=== PATIENT | female | born 1985 | race Caucasian/White ===

== ENCOUNTER 2018-10-16 13:57 | Inpatient (IN) | payer OTHER ==
--- NOTE | 2018-10-16 14:02 | PDOC ---
Rapid Medical Evaluation Time Seen by Provider: 10/16/18 13:59 Medical Evaluation: 10/16/18 13:59 I have performed a brief in-person evaluation of this patient. The patient presents with a chief complaint of: dizzyness, vomiting, blurry vision seen in another ER 5 days ago. Sent by PCP Dr Brown Pertinent physical exam findings: NAD I have ordered the following: u preg and labs Discharge Disposition - Diagnosis Dizzy - Referrals - Patient Instructions - Post Discharge Activity
[2018-10-16 14:05] VITALS: BMI 20.9
[2018-10-16 14:29] LABS: BASO % 0.3 % (0-2.0); EOS % 0.4 % (0-4.5); HEMATOCRIT 41.3 % (32.4-45.2); HEMOGLOBIN 14.6 GM/dL (10.7-15.3); LYMPH % 18.2 % (8-40); MCH 31.4 pg (25.7-33.7); MCHC 35.4 g/dl (32.0-36.0); MEAN CELL VOLUME 88.8 fl (80-96); MEAN PLT VOLUME 8.8 fl (7.5-11.1); MONO % 5.5 % (3.8-10.2); NEUT % 75.6 % (42.8-82.8); PLATELET COUNT 295 K/MM3 (134-434); RBC 4.65 M/mm3 (3.60-5.2); RDW 13.5 % (11.6-15.6); WHITE BLOOD COUNT 11.1 K/mm3 (4.0-10.0)
[2018-10-16 14:53] LABS: ALBUMIN 4.2 g/dl (3.4-5.0); ALK PHOS 60 U/L (45-117); ANION GAP 7 MMOL/L (8-16); BILIRUBIN,TOTAL 0.5 mg/dL (0.2-1); BLOOD UREA NITROGEN 11 mg/dL (7-18); CALCIUM 9.6 mg/dL (8.5-10.1); CHLORIDE 105 mmol/L (98-107); CO2 24 mmol/L (21-32); CREATININE 0.6 mg/dL (0.55-1.3); GLUCOSE,RANDOM 120 mg/dL (74-106); POTASSIUM 3.6 mmol/L (3.5-5.1); SGOT/AST 7 U/L (15-37); SGPT/ALT 15 U/L (13-61); SODIUM 136 mmol/L (136-145)
[2018-10-16] MEDS ORDERED: PANTOPRAZOLE 40 MG TABLET (FP) PO ONE (14:57)
[2018-10-16] MEDS ORDERED: methylPREDNISolone NA SUCC 125 MG/2 ML VIAL IVPUSH ONE (14:57)
--- NOTE | 2018-10-16 14:57 | PDOC ---
History of Present Illness - General Chief Complaint: Lightheaded Stated Complaint: SENT BY PCP Time Seen by Provider: 10/16/18 13:59 History Source: Patient Past History - Past Medical History Allergies/Adverse Reactions: Allergies Allergy/AdvReac Type Severity Reaction Status Date / Time morphine Allergy Intermediate Hives Verified 10/16/18 14:02 Penicillins Allergy Intermediate Hives Verified 10/16/18 14:02 COPD: No Other medical history: MS - Suicide/Smoking/Psychosocial Hx Smoking History: Never smoked Have you smoked in the past 12 months: No Hx Alcohol Use: No Drug/Substance Use Hx: No Review of Systems - Review of Systems Constitutional: No: Chills, Fever HEENTM: Yes: Blurred Vision ABD/GI: Yes: Nausea, Vomiting Neurological: Yes: Dizziness. No: Headache, Numbness, Tingling, Weakness *Physical Exam - Vital Signs Last Vital Signs Temp Pulse Resp BP Pulse Ox 98.4 F 89 18 118/73 99 10/16/18 14:02 10/16/18 14:02 10/16/18 14:02 10/16/18 14:02 10/16/18 14:02 - Physical Exam Comments: 10/16/18 15:01 appears uncomfortable, ambulating slowly 2/2 vertigo General Appearance: Yes: Appropriately Dressed HEENT: positive: Normal Voice Neck: positive: Supple Respiratory/Chest: negative: Respiratory Distress Integumentary: positive: Dry, Warm Neurologic: positive: Fully Oriented, Alert, Normal Mood/Affect, Motor Strength 5/5 (Constance intact, no drift) Moderate Sedation - Procedure Monitoring Vital Signs: Procedure Monitoring Vital Signs Temperature 98.4 F 10/16/18 14:02 Pulse Rate 89 10/16/18 14:02 Respiratory Rate 18 10/16/18 14:02 Blood Pressure 118/73 10/16/18 14:02 O2 Sat by Pulse Oximetry (%) 99 10/16/18 14:02 ED Treatment Course - LABORATORY CBC & Chemistry Diagram: 10/16/18 14:10 10/16/18 14:10 - ADDITIONAL ORDERS Additional order review: Laboratory Results 10/16/18 14:21 Urine HCG, Qual Negative 10/16/18 14:10 RBC 4.65 MCV 88.8 MCHC 35.4 RDW 13.5 MPV 8.8 Neutrophils % 75.6 Lymphocytes % 18.2 Monocytes % 5.5 Eosinophils % 0.4 Basophils % 0.3 Medical Decision Making - Medical Decision Making 10/16/18 14:53 32 yo email with history of MS on Texidera, follows up with Dr. Brown of neuro , here w/ persistent vertigo, n/v and blurry vision. Patient states symptoms started 6 days ago and was seen in [facility] in the ER with unchanged MRI. Was sent home with meclizine and ? zofran with minimal relief. States nausea/ vomiting since resolved. Denies headache, focal weakness, uri sxs or tinnitus. Patient states symptoms similar to her MS flare and was last admitted for same in 2013. States she called Dr. Brown this a.m., who told her to come to ED for admission See exam MS flare Unchanged MRI recently at [facility] per Dr Brown -labs -admit for IV steroids per Dr foote -manage vertigo 10/16/18 15:37 Case d/w hospitalist and pt admitted *DC/Admit/Observation/Transfer Diagnosis at time of Disposition: Vertigo - Discharge Dispostion Condition at time of disposition: Fair Decision to Admit order: Yes - Referrals - Patient Instructions - Post Discharge Activity
[2018-10-16] MEDS ORDERED: diazePAM 5 MG TABLET PO ONE (15:10)
[2018-10-16] MEDS ORDERED: PANTOPRAZOLE 40 MG TABLET (FP) ONE (15:21)
[2018-10-16] MEDS ORDERED: diazePAM 5 MG TABLET ONE (15:21)
[2018-10-16] MEDS ORDERED: methylPREDNISolone NA SUCC 125 MG/2 ML VIAL ONE ×2 (15:21→15:22)
--- NOTE | 2018-10-16 17:17 | HP ---
CHIEF COMPLAINT: dizziness, blurred vision PCP: none HISTORY OF PRESENT ILLNESS: 32 y/o F with PMH MS (dx Jul 2013, follows with Dr. Brown. On Tecfidara.), who presents to the ED c/o dizziness and blurred vision over the past week. States that initially, pt was also having nausea and few episodes of NBNB emesis. Due to her dizziness, 5 days ago, she went to the [facility] ED for further evaluation. While there, she was told she had vertigo and given zofran and meclizine without full relief. States that once her sx continued for 2-3 days after her [facility] visit, she "knew that it was an MS flare." Pt discussed with Dr. Brown and was brought in for management of MS flare. During this time , without other sx. Only endorses mild intermittent weakness that has improved. Had a recent MRI at [facility] which shows no new lesions or demyelination. Denies SILVESTRE, fever, chills, SOB, chest pain or pressure, or changes in urinary or bowel function. Last flare was Jul 2013 when she was dx. At the time, she was unable to see. Her sx were improved with steroids. ER course was notable for: (1) valium 5mg x 1 (2) benadryl 50mg x 1 (3) medrol 125mg x 1 (4) protonix 40mg x 1 Recent Travel: denies PAST MEDICAL HISTORY: as above PAST SURGICAL HISTORY: tubal ligation 2014 Social History: does not work currently. used to be a home sales consultant Smokin-10 cigs/day in past for 6-7 yr duration. quit in 2013 when dx with MS Alcohol: initially, social. stopped drinking in 2013 Drugs: denies Family History: HTN: in grandma, grandpa. asthma, DM in other family members Allergies morphine Allergy (Intermediate, Verified 10/16/18 14:02) Hives, edema Penicillins Allergy (Intermediate, Verified 10/16/18 14:02) Hives, edema HOME MEDICATIONS: Home Medications Medication Instructions Recorded Dimethyl Fumarate [Tecfidera] 240 mg PO BID 10/16/18 confirmed with patient verbally REVIEW OF SYSTEMS CONSTITUTIONAL: Absent: fever, chills, diaphoresis, generalized weakness, malaise, loss of appetite, weight change HEENT: Absent: rhinorrhea, nasal congestion, throat pain, throat swelling, difficulty swallowing, mouth swelling, ear pain, eye pain, visual changes CARDIOVASCULAR: Absent: chest pain, syncope, palpitations, irregular heart rate, lightheadedness , peripheral edema RESPIRATORY: Absent: cough, shortness of breath, dyspnea with exertion, orthopnea, wheezing, stridor, hemoptysis GASTROINTESTINAL: Absent: abdominal pain, abdominal distension, nausea, vomiting, diarrhea, constipation, melena, hematochezia GENITOURINARY: Absent: dysuria, frequency, urgency, hesitancy, hematuria, flank pain, genital pain MUSCULOSKELETAL: Absent: myalgia, arthralgia, joint swelling, back pain, neck pain SKIN: Absent: rash, itching, pallor HEMATOLOGIC/IMMUNOLOGIC: Absent: easy bleeding, easy bruising, lymphadenopathy, frequent infections ENDOCRINE: Absent: unexplained weight gain, unexplained weight loss, heat intolerance, cold intolerance NEUROLOGIC: +neuro, weakness, dizziness Absent: headache, unsteady gait, seizure, mental status changes, bladder or bowel incontinence PSYCHIATRIC: Absent: anxiety, depression, suicidal or homicidal ideation, hallucinations. PHYSICAL EXAMINATION Vital Signs - 24 hr 10/16/18 14:02 Temperature 98.4 F Pulse Rate 89 Respiratory 18 Rate Blood Pressure 118/73 O2 Sat by Pulse 99 Oximetry (%) GENERAL: Pleasant. Awake, alert, and fully oriented, in no acute distress. HEAD: Normal with no signs of trauma. EYES: Pupils equal, round and reactive to light, extraocular movements intact, sclera anicteric, conjunctiva clear. EARS, NOSE, THROAT: Ears normal, nares patent, oropharynx clear without exudates. Moist mucous membranes. NECK: Normal range of motion, supple LUNGS: Breath sounds equal, clear to auscultation bilaterally. No wheezes, and no crackles. No accessory muscle use. HEART: Regular rate and rhythm, normal S1 and S2 without murmur, rub or gallop. ABDOMEN: Soft, nontender, not distended, normoactive bowel sounds, no guarding, no rebound LOWER EXTREMITIES: 2+ pt pulses, warm, well-perfused. No calf tenderness. No peripheral edema. NEUROLOGICAL: Cranial nerves II-XII intact. +horizontal nystagmus on testing. 4 /5 motor strength RLE. PSYCHIATRIC: Cooperative. SKIN: Warm, dry, normal turgor Laboratory Results - last 24 hr 10/16/18 10/16/18 10/16/18 14:10 14:10 14:21 WBC 11.1 H RBC 4.65 Hgb 14.6 Hct 41.3 MCV 88.8 MCH 31.4 MCHC 35.4 RDW 13.5 Plt Count 295 MPV 8.8 Absolute Neuts (auto) 8.4 H Neutrophils % 75.6 Lymphocytes % 18.2 Monocytes % 5.5 Eosinophils % 0.4 Basophils % 0.3 Nucleated RBC % 0 Sodium 136 Potassium 3.6 Chloride 105 Carbon Dioxide 24 Anion Gap 7 L BUN 11 Creatinine 0.6 Creat Clearance w eGFR 116.60 Random Glucose 120 H Calcium 9.6 Total Bilirubin 0.5 AST 7 L ALT 15 Alkaline Phosphatase 60 Total Protein 8.0 Albumin 4.2 Urine HCG, Qual Negative ASSESSMENT/PLAN: 32 y/o F with PMH MS (dx Jul 2013, follows with Dr. Brown. On Tecfidara.), who presents to the ED c/o dizziness and blurred vision over the past week. #MS exacerbation -currently with white count, need to r/o infection. will continue to trend -without new recent demyelinating lesions -Neuro consult: Dr. Brown -c/w solumedrol 250mg IVPB q6h. will need for 3 days as per neuro -c/w protonix 40mg PO qd, as on steroids -c/w tecfidara home med #F/E/N no need for IVF at this time continue to follow lytes regular diet #PPX DVT: hep 5k TID #Dispo admit to med-surg as per neuro, will need 3 days tx then likely d/c after Visit type - Emergency Visit Emergency Visit: Yes ED Registration Date: 10/16/18 Care time: The patient presented to the Emergency Department on the above date and was hospitalized for further evaluation of their emergent condition. - New Patient This patient is new to me today: Yes Date on this admission: 10/16/18 - Critical Care Critical Care patient: No
--- NOTE | 2018-10-16 17:20 | PN ---
Teaching Attending Note Name of Resident: Pallavi Martins ATTENDING PHYSICIAN STATEMENT I saw and evaluated the patient. I reviewed the resident's note and discussed the case with the resident. I agree with the resident's findings and plan as documented. SUBJECTIVE:32yo F with PMH MS initially diagnosed in 2013 after developing blurred vision, has been controlled and has not had any flares since then. reports to the ER with blurred vision and dizzyness for 5 days. some assoc nausea. denies CP, SOB, fever, chills, cough, dysuria, V/C/D. no recent abx use , no sick contacts or recent travel OBJECTIVE: Last Vital Signs Temp Pulse Resp BP Pulse Ox 98.4 F 89 18 118/73 99 10/16/18 14:02 10/16/18 14:02 10/16/18 14:02 10/16/18 14:02 10/16/18 14:05 General NAD HEENT lateral nystagmus CV S1 S2 RRR no murmur/rub/gallop Lungs CTA B/L no wheezing/rales/rhonchi Abdomen soft NT/ND Neuro sensation grossly intact. decrease strength RUE/RLE ASSESSMENT AND PLAN: 32yo F with PMH MS presented with blurred vision and dizzyness consistent with MS flare 1. Acute MS flare- will admit to medicine. no signs of infection. will start solumedrol 250mg Q6H for 3 days. give PPI prophylaxis. had recent MRI not showing any new plaques at [place]. neuro consulted. cont tecfidera 2. Mild leukocytosis- more suggestive of stress induced. does not have any symptoms suggestive of infection and afebrile. will hold abx at this time. will do septic workup if spikes fever. 3. DVT ppx- hep sq
--- NOTE | 2018-10-16 17:39 | CON.NEURO ---
Consult - History of Present Illness History of Present Illness: 32 y/o F with PMH MS (dx Jul 2013, follows with myself On Tecfidara.), who presents to the ED c/o dizziness and blurred vision over the past week. States that initially, pt was also having nausea and few episodes of NBNB emesis. Due to her dizziness, 5 days ago, she went to the [facility] ED for further evaluation. While there, she was told she had vertigo and given zofran and meclizine without full relief. States that once her sx continued for 2-[address] [facility] visit, she "knew that it was an MS flare." MRI done there did not show any new plaques - neuro team had plan to admit her kimberly[pircally for MS flare though she did not want to stay-- residual L PAOLO During this time, without other sx. Only endorses mild intermittent weakness that has improved. recent MRI at [facility] which shows no new lesions or demyelination. Denies SILVESTRE, fever, chills, SOB, chest pain or pressure, or changes in urinary or bowel function. Last flare was Jul 2013 when she was dx. At the time, she was unable to see. Her sx were improved with steroids. - Alcohol/Substance Use Hx Alcohol Use: No - Smoking History Smoking history: Never smoked Have you smoked in the past 12 months: No Home Medications - Allergies Allergies/Adverse Reactions: Allergies Allergy/AdvReac Type Severity Reaction Status Date / Time morphine Allergy Intermediate Hives Verified 10/16/18 14:02 Penicillins Allergy Intermediate Hives Verified 10/16/18 14:02 - Home Medications Home Medications: Ambulatory Orders Dimethyl Fumarate [Tecfidera] 240 mg PO BID 10/16/18 Physical Exam-Neuro Vital Signs: Vital Signs Temperature 98.4 F 10/16/18 14:02 Pulse Rate 89 10/16/18 14:02 Respiratory Rate 18 10/16/18 14:02 Blood Pressure 118/73 10/16/18 14:02 O2 Sat by Pulse Oximetry (%) 99 10/16/18 14:05 Labs: CBC, BMP 10/16/18 14:10 10/16/18 14:10 - Neuro Exam Level Of Consciousness: Yes: Alert (L PAOLO , no facial, motor 5/5, no drift, inc tone in LE , brisk reflexes ) Problem List - Problems (1) Multiple sclerosis Code(s): G35 - MULTIPLE SCLEROSIS (2) Vertigo Code(s): R42 - DIZZINESS AND GIDDINESS Assessment/Plan 32 y/o F with PMH MS (dx Jul 2013, follows with myself On Tecfidara.), who presents to the ED c/o dizziness and blurred vision over the past week. States that initially, pt was also having nausea and few episodes of NBNB emesis. Due to her dizziness, 5 days ago, she went to the [facility] ED for further evaluation. While there, she was told she had vertigo and given zofran and meclizine without full relief. States that once her sx continued for 2-[address] [facility] visit, she "knew that it was an MS flare." MRI done there did not show any new plaques - neuro team had plan to admit her kimberly[pircally for MS flare though she did not want to stay-- residual L PAOLO During this time, without other sx. Only endorses mild intermittent weakness that has improved. recent MRI at [facility] which shows no new lesions or demyelination. Denies SILVESTRE, fever, chills, SOB, chest pain or pressure, or changes in urinary or bowel function. Last flare was Jul 2013 when she was dx. At the time, she was unable to see. Her sx were improved with steroids. AP : HX of MS , with presumptive relapse vs vestibular neuronitis start SOLUMEDROL 250IV q6 x 3 days can add VALIUM 5 PRN do not need to repeat scans vestibular rehab if needed DR ROA
[2018-10-16] MEDS ORDERED: PATIENT'S OWN MEDICATION (NON-FORMULARY) (Dimethyl Fumarate [Tecfidera] 240 MG) PO SCH (22:00)
[2018-10-16] MEDS: methylPREDNISolone NA SUCC 125 MG/2 ML VIAL IVPB SCH (22:32)
[2018-10-16] MEDS: HEPARIN NA (PORCINE) 5,000 UNITS/ML 1ML VIAL SQ SCH (22:32)
[2018-10-17] MEDS: methylPREDNISolone NA SUCC 125 MG/2 ML VIAL IVPB SCH ×4 (04:30→21:17)
[2018-10-17] MEDS: HEPARIN NA (PORCINE) 5,000 UNITS/ML 1ML VIAL SQ SCH ×3 (06:48→21:16)
[2018-10-17 07:26] LABS: WHITE BLOOD COUNT 7.7 K/mm3 (4.0-10.0)
[2018-10-17 07:27] LABS: HEMATOCRIT 39.7 % (32.4-45.2); HEMOGLOBIN 13.7 GM/dL (10.7-15.3); LYMPH % 7.8 % (8-40); MCH 30.6 pg (25.7-33.7); MCHC 34.7 g/dl (32.0-36.0); MEAN CELL VOLUME 88.4 fl (80-96); MEAN PLT VOLUME 9.3 fl (7.5-11.1); MONO % 0.6 % (3.8-10.2); NEUT % 91.6 % (42.8-82.8); PLATELET COUNT 285 K/MM3 (134-434); RBC 4.49 M/mm3 (3.60-5.2); RDW 13.1 % (11.6-15.6)
[2018-10-17 07:38] LABS: PHOSPHOROUS 3.9 mg/dL (2.5-4.9)
--- NOTE | 2018-10-17 09:30 | PN ---
Progress Note (short form) - Note Progress Note: c/o dizzyness that started this morning. improved yesterday after valium and then re-started this mrsven. denies Cp, SOB, fever, chills, N/V/C/D. tolerating diet Current Medications Generic Name Dose Route Start Last Admin Trade Name Freq PRN Reason Stop Dose Admin Acetaminophen 650 mg 10/17/18 00:20 Tylenol - PO Q4H PRN HEADACHE Heparin Sodium (Porcine) 5,000 unit 10/16/18 22:00 10/17/18 06:48 Heparin - SQ 5,000 unit TID DARIEN Administration Methylprednisolone Sodium Succinate 250 mg 10/16/18 21:00 10/17/18 04:30 Solu-Medrol - IVPB 250 mg Q6H-IV DARIEN Administration Non-Formulary Medication 240 mg 10/16/18 22:00 Dimethyl Fumarate [Tecfidera] PO BID DARIEN Pantoprazole Sodium 40 mg 10/17/18 10:00 Protonix - PO DAILY DARIEN Last Vital Signs Temp Pulse Resp BP Pulse Ox 98.2 F 83 18 116/66 99 10/17/18 08:48 10/17/18 08:48 10/17/18 08:48 10/17/18 08:48 10/16/18 21:00 General NAD HEENT lateral nystagmus CV S1 S2 RRR no murmur/rub/gallop Lungs CTA B/L no wheezing/rales/rhonchi Abdomen soft NT/ND CBCD WBC 7.7 K/mm3 (4.0-10.0) 10/17/18 06:00 RBC 4.49 M/mm3 (3.60-5.2) 10/17/18 06:00 Hgb 13.7 GM/dL (10.7-15.3) 10/17/18 06:00 Hct 39.7 % (32.4-45.2) 10/17/18 06:00 MCV 88.4 fl (80-96) 10/17/18 06:00 MCHC 34.7 g/dl (32.0-36.0) 10/17/18 06:00 RDW 13.1 % (11.6-15.6) 10/17/18 06:00 Plt Count 285 K/MM3 (134-434) 10/17/18 06:00 MPV 9.3 fl (7.5-11.1) 10/17/18 06:00 ASSESSMENT AND PLAN: 32yo F with PMH MS presented with blurred vision and dizzyness consistent with MS flare 1. Acute MS flare- blurred vision slight improvement. cont medrol high dose. home dose of tecfidera. neuro on board. 2. vertigo- continues to have vertiginuous symptoms which improved with valium.will give additional dose. possible this could have triggered MS flare. will monitor 2. Mild leukocytosis- more suggestive of stress induced. now resolved 3. DVT ppx- hep sq Visit type - Emergency Visit Emergency Visit: Yes ED Registration Date: 10/16/18 Care time: The patient presented to the Emergency Department on the above date and was hospitalized for further evaluation of their emergent condition. - New Patient This patient is new to me today: No - Critical Care Critical Care patient: No - Discharge Referral Referred to [facility] Med P.C.: No
[2018-10-17] MEDS: PANTOPRAZOLE 40 MG TABLET (FP) PO SCH (09:36)
[2018-10-17] MEDS ORDERED: diazePAM 5 MG TABLET PO ONE (10:21)
[2018-10-17 11:30] LABS: ANISOCYTOSIS 0; MACROCYTOSIS 0; PLATELET ESTIMATE NORMAL
[2018-10-17] MEDS: ACETAMINOPHEN 325 MG TABLET (FP) PO PRN (17:51)
--- NOTE | 2018-10-17 19:38 | PN ---
Progress Note (short form) - Note Progress Note: Pt. with MS flare, on steroids. Reports she feels better, has no vertigo, very little blurred vision. Feels Valium HS really helped cvertigo. Exam unchanged. Plan: cont. solumedrol Valium 2mg hs to target vertigo
[2018-10-17] MEDS ORDERED: diazePAM 2 MG TABLET PO SCH (22:00)
[2018-10-18] MEDS: methylPREDNISolone NA SUCC 125 MG/2 ML VIAL IVPB SCH ×4 (02:20→22:00)
[2018-10-18] MEDS: HEPARIN NA (PORCINE) 5,000 UNITS/ML 1ML VIAL SQ SCH ×3 (05:28→22:00)
--- NOTE | 2018-10-18 10:01 | PN ---
Teaching Attending Note Name of Resident: Pallavi Martins ATTENDING PHYSICIAN STATEMENT I saw and evaluated the patient. I reviewed the resident's note and discussed the case with the resident. I agree with the resident's findings and plan as documented. SUBJECTIVE:states dizzyness has resolved. blurred vision is improving and mostly resolved. denies CP, SOB, fever, chills, N/V/C/D OBJECTIVE: Last Vital Signs Temp Pulse Resp BP Pulse Ox 98.8 F 62 18 115/64 99 10/18/18 08:40 10/18/18 08:40 10/18/18 08:40 10/18/18 08:40 10/17/18 21:00 General NAD ASSESSMENT AND PLAN: 32yo F with PMH MS presented with blurred vision and dizzyness consistent with MS flare 1. Acute MS flare- continues to slowly improve. cont medrol high dose. PPI ppx. home dose of tecfidera. neuro on board. 2. vertigo-improved with valium. started on low dose at bedtime. will cont. consider vestibular rehab if persists. 3. Mild leukocytosis- more suggestive of stress induced. now resolved 4. DVT ppx- hep sq 5. anticipate d/c home in next 24-48H if continues to improve.
[2018-10-18] MEDS: PANTOPRAZOLE 40 MG TABLET (FP) PO SCH (10:19)
[2018-10-18] MEDS: ACETAMINOPHEN 325 MG TABLET (FP) PO PRN (10:23)
[2018-10-18] MEDS ORDERED: diazePAM 2 MG TABLET PO ONE (12:37)
[2018-10-18] MEDS ORDERED: ONDANSETRON 4 MG/2 ML VIAL IVPUSH ONE (12:38)
--- NOTE | 2018-10-18 17:44 | PN ---
Physical Exam: SUBJECTIVE: Patient seen and examined at bedside. This AM, states that dizziness is improved. However, worsened in afternoon - was given valium 2mg x 1 with relief. No other complaint. OBJECTIVE: Vital Signs Period Temp Pulse Resp BP Sys/Fontaine Pulse Ox Last 24 Hr 98.2 F-98.8 F 62-78 18-18 99-129/44-70 98-99 GENERAL: The patient is awake, alert, and fully oriented, in no acute distress. HEAD: Normal with no signs of trauma. EYES: +horizontal nystagmus ENT: Ears normal, nares patent, oropharynx clear without exudates, moist mucous membranes. NECK: Trachea midline, supple. LUNGS: Breath sounds equal, clear to auscultation bilaterally, no wheezes, no crackles, no accessory muscle use. HEART: Regular rate and rhythm, S1, S2 without murmur, rub or gallop. ABDOMEN: Soft, nontender, nondistended, normoactive bowel sounds, no guarding EXTREMITIES: 2+ pt pulses, warm, well-perfused, no edema. NEUROLOGICAL: Cranial nerves II through XII grossly intact. 4/5 motor strength RLE. 5/5 LLE PSYCH: Normal mood, normal affect. SKIN: Warm, dry, normal turgor, no rashes or lesions noted Active Medications Generic Name Dose Route Start Last Admin Trade Name Freq PRN Reason Stop Dose Admin Acetaminophen 650 mg 10/17/18 00:20 10/18/18 10:23 Tylenol - PO 650 mg Q4H PRN Administration HEADACHE Diazepam 2 mg 10/17/18 22:00 10/17/18 21:17 Valium - PO 10/20/18 21:59 2 mg HS DARIEN Administration Heparin Sodium (Porcine) 5,000 unit 10/16/18 22:00 10/18/18 13:52 Heparin - SQ 5,000 unit TID DARIEN Administration Methylprednisolone Sodium Succinate 250 mg 10/16/18 21:00 10/18/18 15:09 Solu-Medrol - IVPB 250 mg Q6H-IV DARIEN Administration Non-Formulary Medication 240 mg 10/16/18 22:00 Dimethyl Fumarate [Tecfidera] PO BID DARIEN Pantoprazole Sodium 40 mg 10/17/18 10:00 10/18/18 10:19 Protonix - PO 40 mg DAILY DARIEN Administration ASSESSMENT/PLAN: 32 y/o F with PMH MS (dx Jul 2013, follows with Dr. Brown. On Tecfidara.), who presents to the ED c/o dizziness and blurred vision over the past week. #MS exacerbation -Neuro consult: Dr. Brown -c/w solumedrol 250mg IVPB q6h. can d/c tomorrow on prednisone taper if improves starting with 60mg, decrease by 10 every 2 days. +valium for vertigo -c/w protonix 40mg PO qd -c/w tecfidara home med #F/E/N no need for IVF at this time continue to follow lytes regular diet #PPX DVT: hep 5k TID #Dispo med-surg can d/c tomorrow if continues to improve on steroid taper above +valium Visit type - Emergency Visit Emergency Visit: No - New Patient This patient is new to me today: No - Critical Care Critical Care patient: No
--- NOTE | 2018-10-18 19:06 | PN ---
Progress Note, Physician Chief Complaint: NEUROLOGY-GARY TEJADA F/U: Pt. had one episode of vertigo today, prn valium worked well. Solumedrol day#3(last dose tomorrow) Will increase Valium to 2mg bid. Basic metabolic panel requested today. - Current Medication List Current Medications: Active Medications Acetaminophen (Tylenol -) 650 mg PO Q4H PRN PRN Reason: HEADACHE Last Admin: 10/18/18 10:23 Dose: 650 mg Diazepam (Valium -) 2 mg PO 12 DARIEN Stop: 10/19/18 18:30 Heparin Sodium (Porcine) (Heparin -) 5,000 unit SQ TID DARIEN Last Admin: 10/18/18 13:52 Dose: 5,000 unit Methylprednisolone Sodium Succinate (Solu-Medrol -) 250 mg IVPB Q6H-IV COUNT INCLUDES THE [facility] Last Admin: 10/18/18 15:09 Dose: 250 mg Non-Formulary Medication (Dimethyl Fumarate [Tecfidera]) 240 mg PO BID COUNT INCLUDES THE [facility] Pantoprazole Sodium (Protonix -) 40 mg PO DAILY COUNT INCLUDES THE [facility] Last Admin: 10/18/18 10:19 Dose: 40 mg - Objective Vital Signs: Vital Signs Temperature 98.8 F 10/18/18 13:00 Pulse Rate 62 10/18/18 08:40 Respiratory Rate 18 10/18/18 09:00 Blood Pressure 115/64 10/18/18 08:40 O2 Sat by Pulse Oximetry (%) 98 10/18/18 09:00 Labs: CBC, BMP 10/17/18 06:00 10/16/18 14:10
[2018-10-18] MEDS: diazePAM 2 MG TABLET PO SCH (22:01)
--- NOTE | 2018-10-18 23:45 | EKG ---
Test Reason : Blood Pressure : / mmHG Vent. Rate : 072 BPM Atrial Rate : 072 BPM P-R Int : 106 ms QRS Dur : 086 ms QT Int : 388 ms P-R-T Axes : 036 063 046 degrees QTc Int : 424 ms SINUS RHYTHM WITH SHORT OK OTHERWISE NORMAL ECG NO PREVIOUS ECGS AVAILABLE Confirmed by SUKHWINDER TEJADA, DUSTIN ([id number]) on 10/18/2018 11:45:02 PM Referred By: Gloria FLORES Confirmed By:DUSTIN PRETTY MD
[2018-10-19] MEDS: methylPREDNISolone NA SUCC 125 MG/2 ML VIAL IVPB SCH ×2 (02:04→09:47)
[2018-10-19] MEDS: HEPARIN NA (PORCINE) 5,000 UNITS/ML 1ML VIAL SQ SCH (05:34)
[2018-10-19 08:00] LABS: ANION GAP 8 MMOL/L (8-16); BLOOD UREA NITROGEN 16 mg/dL (7-18); CALCIUM 8.7 mg/dL (8.5-10.1); CHLORIDE 104 mmol/L (98-107); CO2 28 mmol/L (21-32); CREATININE 0.6 mg/dL (0.55-1.3); GLUCOSE,RANDOM 117 mg/dL (74-106); SODIUM 140 mmol/L (136-145)
--- NOTE | 2018-10-19 09:30 | PN ---
Progress Note (short form) - Note Progress Note: 32 y/o F with PMH MS (dx Jul 2013, follows with myself On Tecfidara.), who presents to the ED c/o dizziness and blurred vision over the past week. States that initially, pt was also having nausea and few episodes of NBNB emesis. Due to her dizziness, 5 days ago, she went to the [facility] ED for further evaluation. While there, she was told she had vertigo and given zofran and meclizine without full relief. States that once her sx continued for 2-3 days after her [facility] visit, she "knew that it was an MS flare." MRI done there did not show any new plaques - neuro team had plan to admit her kimberly[pircally for MS flare though she did not want to stay-- residual L PAOLO During this time, without other sx. Only endorses mild intermittent weakness that has improved. recent MRI at [facility] which shows no new lesions or demyelination. Denies SILVESTRE, fever, chills, SOB, chest pain or pressure, or changes in urinary or bowel function. Last flare was Jul 2013 when she was dx. At the time, she was unable to see. Her sx were improved with steroids. FU : doing better today AP : HX of MS , with presumptive relapse vs vestibular neuronitis completed SOLUMEDROL 250IV q6 x 3 days , to give prednisone taper can do VALIUM 5 PRN do not need to repeat scans vestibular rehab if needed stable for DC today DR ROA Problem List - Problems (1) Multiple sclerosis Code(s): G35 - MULTIPLE SCLEROSIS (2) Vertigo Code(s): R42 - DIZZINESS AND GIDDINESS
[2018-10-19] MEDS: PANTOPRAZOLE 40 MG TABLET (FP) PO SCH (09:47)
[2018-10-19] MEDS: diazePAM 2 MG TABLET PO SCH (09:47)
--- NOTE | 2018-10-19 10:25 | DS ---
Physical Exam: SUBJECTIVE: Patient seen and examined at bedside. no complaints. denies fever, chills, cp ,sob, dizzy, n/v/d, urinary sxs OBJECTIVE: Vital Signs Period Temp Pulse Resp BP Sys/Fontaine Pulse Ox Last 24 Hr 97.9 F-98.8 F 54-67 18-18 113-128/54-68 98 PHYSICAL EXAM GENERAL: The patient is awake, alert, and fully oriented, in no acute distress. HEAD: Normal with no signs of trauma. ENT: nares patent, oropharynx clear without exudates, moist mucous membranes. NECK: Trachea midline, supple. LUNGS: CTAB HEART: Regular rate and rhythm, S1, S2 without murmur, rub or gallop. ABDOMEN: Soft, nontender, nondistended, normoactive bowel sounds, no guarding EXTREMITIES: 2+ pt pulses, warm, well-perfused, no edema. NEUROLOGICAL: Cranial nerves II through XII grossly intact. 4/5 motor strength RLE. 5/5 LLE PSYCH: Normal mood, normal affect. SKIN: Warm, dry, normal turgor, no rashes or lesions noted LABS Laboratory Results - last 24 hr 10/19/18 07:00 Sodium 140 Potassium 4.0 Chloride 104 Carbon Dioxide 28 Anion Gap 8 BUN 16 Creatinine 0.6 Creat Clearance w eGFR 116.60 Random Glucose 117 H Calcium 8.7 HOSPITAL COURSE: Date of Admission:10/16/18 Date of Discharge: 10/19/18 32 y/o F with PMH MS (dx Jul 2013, follows with Dr. Brown. On Tecdara.), who presents to the ED c/o dizziness and blurred vision over the past week. Admitted for Acute MS flare. Neuro consult: Dr. Brown. tx w/ solumedrol x3d w/ good response. dizziness improved w/ valium. pt will be dc w/ prednisone taper starting with 60mg, decrease by 10 every 2 days (12d total), PPI ppx, and valium for dizziness/vertigo. pt dorota f/u w/ Dr. Brown outpt. can consider vestibular rehab if vertigo persists. Last flare was Jul 2013 when she was dx. At the time, she was unable to see. Her sx were improved with steroids. recent MRI at [facility] which shows no new lesions or demyelination. do not need to repeat scans, per neuro consult pt stable and ready for dc w/ appropriate f/u Minutes to complete discharge: 38 Discharge Summary Reason For Visit: VERTIGO Current Active Problems Multiple sclerosis (Acute) Vertigo (Acute) Condition: Stable - Instructions Diet, Activity, Other Instructions: You came in for a flare up of your multiple sclerosis and dizziness We gave you IV steroids which helped. We also gave you valium for your dizziness/vertigo. Please resume your home meds. Please continue taking prednisone for the following 12 day taper: Please take 60mg daily (six 10mg pills per day) for 2 days and then decrease to...50mg daily for 2 days and then decrease to...40mg daily for 2 days and then decrease to...30mg daily for 2 days and then decrease to...20mg daily for 2 days and then decrease to...10mg daily for 2 days to complete to steroid course Please take protonix 40mg daily for 12 days while taking the prednisone course Please continue taking valium for your dizziness/vertigo Please follow up with your primary care physician within 1 week Please follow up with Neurologist Dr Brown within 1 week If you experience any headache, weakness, dizziness, unable to control your bladder, numbness, tingling, chest pain, shortness of breath, nausea ,vomit, please call 911 or go to the ER Referrals: Jose Brown DO [Staff Physician] - 1 Week Disposition: HOME - Home Medications Comprehensive Discharge Medication List: Ambulatory Orders Dimethyl Fumarate [Tecfidera] 240 mg PO BID 10/16/18 Pantoprazole Sodium [Protonix -] 40 mg PO DAILY 12 Days #12 tablet.ec 10/19/18 predniSONE [Deltasone -] See Taper PO ASDIR 12 Days #42 tab 10/19/18 This patient is new to me today: Yes Date on this admission: 10/19/18 Emergency Visit: Yes ED Registration Date: 10/16/18 Care time: The patient presented to the Emergency Department on the above date and was hospitalized for further evaluation of their emergent condition. Critical Care patient: No - Discharge Referral Referred to [facility] Med P.C.: No
--- NOTE | 2018-10-19 11:58 | PN ---
Teaching Attending Note Name of Resident: Rik Golden ATTENDING PHYSICIAN STATEMENT I saw and evaluated the patient. I reviewed the resident's note and discussed the case with the resident. I agree with the resident's findings and plan as documented. SUBJECTIVE:symptoms resolved. no more dizzyness. wyatt Cp, SOB, fever, chills, blurred vision OBJECTIVE: Last Vital Signs Temp Pulse Resp BP Pulse Ox 98.1 F 65 18 117/65 98 10/19/18 10:00 10/19/18 10:00 10/19/18 10:00 10/19/18 10:00 10/19/18 09:00 General NAD ASSESSMENT AND PLAN: 32yo F with PMH MS presented with blurred vision and dizzyness consistent with MS flare 1. Acute MS flare- continues to slowly improve. high dose neuro on board.medrol x3 days. will do on prednisone taper as recommended by neuro. PPI ppx. home dose of tecfidera. 2. vertigo-improved with valium. cont valium HS prn. consider vestibular rehab if persists. 3. Mild leukocytosis- more suggestive of stress induced. now resolved 4. DVT ppx- hep sq 5.d/c home
[2018-10-19] MEDS: ACETAMINOPHEN 325 MG TABLET (FP) PO PRN (12:11)
[2018-10-19 13:38] VITALS: BP 113/58; PULSE 77; TEMP 98.2
== END 2018-10-19 14:41 | disposition home or self-care (01) | DRG 43 ==
LOC: JER 13:57 → JERBED 15:03 → J7W 18:05
PROVIDERS: ADMIT Internal Medicine; ATTEND Internal Medicine
DX: G35 Multiple sclerosis (principal); Z88.0 Allergy status to penicillin; D72.829 Elevated white blood cell count, unspecified; R42 Dizziness and giddiness
CPT/HCPCS: 36415; 80048; 80053; 83735; 84100; 84703; 85025; 93005; 93010; 99282-25; J1644

== ENCOUNTER 2021-07-14 08:12 | Emergency (ER) | payer OTHER ==
[2021-07-14 08:21] VITALS: BMI 25.8
[2021-07-14] MEDS ORDERED: SODIUM CHLORIDE 1,000 ML IV STA (09:03)
[2021-07-14] MEDS ORDERED: ONDANSETRON 4 MG/2 ML VIAL IVPUSH ONE (09:03)
[2021-07-14] MEDS ORDERED: ONDANSETRON 4 MG/2 ML VIAL ONE (09:14)
[2021-07-14 09:44] LABS: BASO % 0.3 % (0-2.0); HEMATOCRIT 40.2 % (32.4-45.2); HEMOGLOBIN 13.9 GM/dL (10.7-15.3); LYMPH % 23.9 % (8-40); MCH 29.5 pg (25.7-33.7); MCHC 34.5 g/dl (32.0-36.0); MEAN CELL VOLUME 85.6 fl (80-96); MEAN PLT VOLUME 8.4 fl (7.5-11.1); MONO % 6.8 % (3.8-10.2); PLATELET COUNT 232 10^3/uL (134-434); WHITE BLOOD COUNT 6.1 K/mm3 (4.0-10.0)
[2021-07-14 10:01] LABS: ALBUMIN 3.7 g/dl (3.4-5.0)
[2021-07-14 10:03] LABS: CREATININE 0.7 mg/dL (0.55-1.3)
[2021-07-14 10:05] LABS: BILIRUBIN,TOTAL 0.3 mg/dL (0.2-1); TOT PROT 7.9 g/dl (6.4-8.2)
[2021-07-14 11:07] VITALS: BP 110/65; PULSE 100; TEMP 99
== END 2021-07-14 11:31 | disposition home or self-care (01) ==
LOC: JER 08:12
PROC: 3E033GC Introduction of Other Therapeutic Substance into Peripheral Vein, Percutaneous Approach (ICD-10-PCS; principal; 2021-07-14)
DX: U07.1 COVID-19 (principal); R11.2 Nausea with vomiting, unspecified
CPT/HCPCS: 36415; 80053; 83690; 85025; 93005; 93010; 99284-25